=== PATIENT | male | born 1960 | race Caucasian/White ===

== ENCOUNTER → 2017-01-08 | Outpatient (CLI) | payer OTHER ==
--- NOTE | 2017-01-11 10:07 | US ---
EXAM DESCRIPTION: Thyroid CLINICAL HISTORY: 56 years, Male, NON TOXIC GOITER- THYROID NODULE COMPARISON: None. TECHNIQUE: Multiple real-time sonographic images were obtained of the thyroid. FINDINGS: The right lobe demonstrates slight heterogenous appearance. And a solid hyperechoic severe cold nodule with a thick hypoechoic well-defined border in the inferior lobe measuring 1.2 x 1 cm. The left lobe demonstrates rather heterogenous appearance with a small hyperechoic well-defined nodule in the lower lobe measuring 5 x 5 mm and a second one in the midportion deep digits is hypoechoic with thin well-defined border measuring 11 x 7 x 7 mm The right lobe measures 5.4 cm in length by 2.3 x 2.3 cm. The left lobe measures 4.7 cm in length by 1.6 x 2.1 cm. And the isthmus measures X mm in thickness. Surrounding soft tissues are unremarkable. IMPRESSION: 1 nodule seen in the lower right lobe. Which is the largest measuring 12 x 10 mm. And 2 smaller nodules in the left lobe. Recommend follow-up ultrasound in 6 months. Electronically signed by: Danny Saha MD 01/11/2017 10:06 AM [facility]
== END | disposition home or self-care (01) ==
LOC: US 07:56
PROVIDERS: ATTEND Family Medicine
DX: E04.2 Nontoxic multinodular goiter (principal)

== ENCOUNTER → 2017-12-24 | Outpatient (CLI) | payer OTHER ==
--- NOTE | 2017-12-27 08:11 | US ---
EXAM DESCRIPTION: Abdomen,Complete CLINICAL HISTORY: ELEVATED LFTS COMPARISON: None Available. TECHNIQUE: Complete abdominal ultrasound FINDINGS: Visualized portions of the pancreas are unremarkable. No peripancreatic fluid. Bowel gas obscures some areas. Normal caliber of the aorta. Normal appearance of the inferior vena cava. Liver parenchyma is homogeneous in texture with normal echogenicity. No liver mass or intrahepatic bile duct dilatation. No liver surface irregularity. Normal appearance of hepatic veins and portal vein. Gallbladder appears normal with no intraluminal stones. No gallbladder wall thickening. Common bile duct is normal in caliber measuring 4.2 mm. The right kidney measures 10.25 cm in length. Normal renal cortical echogenicity. The renal cortical thickness appears normal. No right renal mass, shadowing stone or cyst. There is no hydronephrosis. Spleen is enlarged measuring 14.4 cm in length. No focal splenic lesion. The left kidney measures 10.8 cm in length. Normal renal cortical echogenicity. The renal cortical thickness appears normal. No left renal mass, shadowing stone or cyst. There is no hydronephrosis. IMPRESSION: Splenomegaly. Electronically signed by: Alex Ramirez MD 12/27/2017 8:10 AM [facility]
== END ==
LOC: US 14:01
PROVIDERS: ATTEND Family Medicine
DX: R94.5 Abnormal results of liver function studies (principal); R16.1 Splenomegaly, not elsewhere classified

== ENCOUNTER → 2019-03-07 | Outpatient (CLI) | payer BC | LOC: GMAJ 10:48 | PROVIDERS: ATTEND Family Medicine | DX: Z00.00 Encounter for general adult medical examination without abnormal findings (principal); E03.8 Other specified hypothyroidism ==

== ENCOUNTER → 2019-10-23 | Outpatient (CLI) | payer BC | LOC: GMAJ 14:18 | PROVIDERS: ATTEND Family Medicine | DX: E03.8 Other specified hypothyroidism (principal); Z79.899 Other long term (current) drug therapy ==